=== PATIENT | female | born 1965 | race Caucasian/White ===

== ENCOUNTER 2017-06-29 21:20 | Emergency (ER) | payer BC ==
[2017-06-29 21:30] VITALS: BP 144/83; BMI 25.9
--- NOTE | 2017-06-29 22:09 | DR.GENAD ---
HPI - PCP Primary Care Physician: TANMAY - Complaint/Symptoms Chief Complaint:: " I HAVE A CYST UNDER MY ARM SAMREEN HAD IT FOR ABOUT 4 DAYS NOW. Self Treatment fo Chief Complaint: TYLENOL 1000MG @ 1400 - Source History Provided: Patient - Mode of Arrival Mode of Arrival: Ambulatory - Timing Onset of Chief Complaint: 06/26/17 PMH - PMH Past Medical History: No Past Surgical History: Yes Surgical History: Hysterectomy - Family History History of Family Medical Conditions: No - Social History Alcohol Use: None Do you use any recreational Drugs:: No Lives Where: Home - infectious screening Have you traveled outside the country in the last 6 months?: No ROS - Review of Systems Eyes: No Symptoms Reported ENTM: No Symptoms Reported Respiratoy: No Symptoms Reported Cardiovascular: No Symptoms Reported Gastrointestinal/Abdominal: No Symptoms Reported Genitourinary: No Symptoms Reported Neurological: No Symptoms Reported Musculoskeletal: Other (axilla tender nodulem erythematous) Integumentary: No Symptoms Reported Hematologic/Lymphatic: No Symptoms Reported Endocrine: No Symptoms Reported Psychiatric: No Symptoms Reported All Other Systems: Reviewed and Negative PE - Vital Signs Vitals: Temperature 98.4 F Pulse Rate 95 Respiratory Rate 18 Blood Pressure 144/83 O2 Sat by Pulse Oximetry 100 - General Limitations: No Limitations General Appearance: Alert, In No Apparent Distress - Head Head Exam: Normal Inspection, Atraumatic - Eyes Eye exam: Normal Appearance, PERRL, EOMI - ENT ENT Exam: Normal Exam External Ear Exam: Normal External Inspection TM/Canal Exam: Bilateral Normal Nose Exam: Normal Nose Exam Mouth Exam: Normal Inspection Throat Exam: Normal Inspection - Neck Neck Exam: Normal Inspection - Chest Chest Inspection: Normal Inspection - Respiratory Respiratory Exam: Normal Lung Sounds Bilat, Accessory Muscle Use Respiratory Exam: Bilateral Clear to Auscultation - Cardiovascular Cardiovascular Exam: Regular Rate - Abdominal Exam Abdominal Exam: Normal Inspection - Extremities Extremities Exam: Normal Inspection, Full ROM - Back Back Exam: Normal Inspection - Neurologic Neurological Exam: Alert, Oriented X3, CN II-XII Intact - Psychiatric Psychiatric Exam: Normal Affect - Skin Skin Exam: Warm, Dry, Intact, Other (right axilla an pinkish tender nodule) - Diagnosis Discharge Problem: Hidradenitis - Discharge Plan Condition: Stable - Follow ups/Referrals Follow ups/Referrals: Shine DONATO [Primary Care Provider] - 3 days - Instructions
== END 2017-06-29 22:25 | disposition home or self-care (01) ==
LOC: ER 21:34
DX: L73.2 Hidradenitis suppurativa (principal)
CPT/HCPCS: 99281; 99282